=== PATIENT | male | born 1980 | race Native Hawaiian/Other Pacific Islander ===

== ENCOUNTER 2018-02-07 09:20 | Emergency (ER) | payer OTHER ==
[~2018-02-07] VITALS: Ht 160 cm; Wt 74.8 kg
[2018-02-07 09:20] VITALS: TEMP 98.4
[2018-02-07 10:06] LABS: PLATELET COUNT 405 K/uL (142-355)
[2018-02-07 10:09] LABS: POTASSIUM 3.6 mmol/L (3.6-5.2)
[2018-02-07 11:42] VITALS: BP 128/72
== END 2018-02-07 11:42 | disposition home or self-care (01) ==
LOC: ED 09:20
DX: R56.9 Unspecified convulsions (principal)
CPT/HCPCS: 36415; 80053; 83735; 85027; 99283